=== PATIENT | male | born 1950 | race Asian ===

== ENCOUNTER 2017-04-18 16:14 | Outpatient (CLI) | payer OTHER | END 2017-04-18 16:19 | disposition short-term general hospital (02) | LOC: AMB 16:14 | DX: I95.89 Other hypotension (principal) | CPT/HCPCS: A0425; A0427 ==

== ENCOUNTER 2017-05-03 19:39 | Outpatient (CLI) | payer OTHER | END 2017-05-03 19:43 | disposition short-term general hospital (02) | LOC: AMB 19:39 | DX: E16.1 Other hypoglycemia (principal) | CPT/HCPCS: A0425; A0427 ==